=== PATIENT | female | born 1945 | race Caucasian/White ===

== ENCOUNTER 2018-10-14 12:19 | Emergency (ER) | payer MEDICARE, OTHER ==
[~2018-10-14] VITALS: Ht 162.6 cm; Wt 61.7 kg
[~2018-10-14 12:19] MED LIST: CLONIDINE HCL0.1 MG PO; COLACE100 MG PO; ELIQUIS5 MG PO; LASIX 20 MG TAB20 MG PO; NORCO 5-325 TA1 EACH PO; VERAPAMIL ER120 M1 PO
[2018-10-14] MEDS ORDERED: VITAMIN B125000 MCG PO (12:32)
[2018-10-14] MEDS ORDERED: ASPIR 8181 MG PO (12:32)
[2018-10-14] MEDS ORDERED: [UNRECOGNIZED DRUG - REMARK] (12:33)
[2018-10-14 12:52] LABS: ABSOLUTE BASOPHILS 0.1 thou/uL (0.0-0.2); ABSOLUTE LYMPHOCYTES 2.2 thou/uL (0.8-5.3); ABSOLUTE MONOCYTES 0.7 thou/uL (0.0-1.2); ABSOLUTE NEUTROPHILS 4.5 thou/uL (1.6-8.1); BASOPHILS 0.7 %; EOSINOPHILS 0.3 %; HEMATOCRIT 45.7 % (37.0-47.0); HEMOGLOBIN 15.5 gm/dL (12.0-15.0); LYMPHOCYTES 29.7 %; MCH 29.2 pg (26.0-34.0); MCV 85.8 fL (80.0-100.0); MONOCYTES 9.1 %; NUCLEATED RBCS 0 /100WBC; PLATELET COUNT* 260 thou/uL (150-400); POLYS 60.2 %; RBC 5.32 mil/uL (4.20-5.00); RDW-CV 14.9 % (10.5-14.5); WBC 7.5 thou/uL (4.0-11.0)
[2018-10-14] MEDS ORDERED: ZETIA10 MG PO (12:57)
[2018-10-14] MEDS ORDERED: ALDACTONE50 MG PO (12:58)
[2018-10-14 13:02] LABS: APTT 23.3 Seconds (25.0-31.3); PROTIME 10.2 Seconds (9.20-11.50)
[2018-10-14 13:04] LABS: ANION GAP 9 mmol/L (7-16); BUN 9 mg/dL (7-18); CALCIUM 9.9 mg/dL (8.5-10.1); CHLORIDE 97 mmol/L (98-107); CO2 27 mmol/L (21-32); GLUCOSE 124 mg/dL (70-99); POTASSIUM 3.9 mmol/L (3.5-5.1); SODIUM 133 mmol/L (136-145)
[2018-10-14 13:09] LABS: ALBUMIN 3.8 g/dL (3.4-5.0); ALKALINE PHOSPHATASE 109 U/L (46-116); LIPASE 184 U/L (73-393); NT-PRO BRAIN NAT PEPTIDE 54 pg/mL (<300); SGOT 17 U/L (15-37); SGPT 34 U/L (30-65); TOTAL PROTEIN 7.4 g/dL (6.4-8.2); TROPONIN-I LEVEL <0.06 ng/mL (<0.06)
[2018-10-14] MEDS ORDERED: VERAPAMIL ER180 MG PO (14:24)
[2018-10-14] MEDS ORDERED: VERAPAMIL E.R240 M1 PO (14:24)
[2018-10-14 14:37] VITALS: BP 171/74
--- NOTE | 2018-10-14 16:31 | EKG ---
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 : 1945 Requested By: Carlo Gamboa Order Number: [id number] MD: Silvino Gama Measurements Intervals [place] Rate: 68 P: 36 OR: 164 QRS: -50 QRSD: 94 T: 34 QT: 399 QTc: 425 Interpretive Statements Sinus rhythm Probable left atrial enlargement Left anterior fascicular block Abnormal R-wave progression, late transition Compared to ECG 04/12/2015 14:52:27 Left anterior fascicular block now present Indeterminate axis no longer present Electronically Signed On 10-14-2018 16:30:57 BRANCH COORDINATOR by Silvino Gama [email or web address] <ELECTRONICALLY SIGNED> By: Silvino Gama MD, FACC 10/14/18 1630 1234 1234 Silvino Gama MD, FAC /EPI
== END 2018-10-14 14:38 | disposition home or self-care (01) ==
LOC: M.ERS 12:19
PROVIDERS: Personal Emergency Response Attendant
DX: I10 Essential (primary) hypertension (principal); I25.2 Old myocardial infarction; Z90.49 Acquired absence of other specified parts of digestive tract; Z88.8 Allergy status to other drugs, medicaments and biological substances

== ENCOUNTER 2021-04-14 15:01 | Emergency (ER) | payer MEDICARE, OTHER ==
[~2021-04-14] VITALS: Ht 160 cm; Wt 57.6 kg
[~2021-04-14 15:01] MED LIST changes: +ALDACTONE50 MG PO; +ASPIR 8181 MG PO; +VERAPAMIL E.R240 M1 PO; +VERAPAMIL ER180 MG PO; +VITAMIN B125000 MCG PO; +ZETIA10 MG PO; +[UNRECOGNIZED DRUG - REMARK]
[2021-04-14] MEDS ORDERED: ASA81BEC PO (15:12)
[2021-04-14] MEDS ORDERED: NORVASC10 MG PO (15:14)
[2021-04-14 16:07] LABS: ABSOLUTE BASOPHILS 0.1 thou/uL (0.0-0.2); ABSOLUTE EOSINOPHILS 0.2 thou/uL (0.0-0.7); ABSOLUTE LYMPHOCYTES 2.5 thou/uL (0.8-5.3); ABSOLUTE MONOCYTES 0.7 thou/uL (0.0-1.2); ABSOLUTE NEUTROPHILS 6.8 thou/uL (1.6-8.1); BASOPHILS 0.5 %; EOSINOPHILS 2.1 %; HEMATOCRIT 40.1 % (37.0-47.0); HEMOGLOBIN 13.3 gm/dL (12.0-15.0); LYMPHOCYTES 24.1 %; MCH 26.7 pg (26.0-34.0); MCHC 33.1 g/dL (28.0-37.0); MCV 80.7 fL (80.0-100.0); MONOCYTES 7.2 %; MPV 7.7 fl. (7.2-11.1); NUCLEATED RBCS 0 /100WBC; PLATELET COUNT* 296 thou/uL (150-400); POLYS 66.1 %; RBC 4.97 mil/uL (4.20-5.00); RDW-CV 16.5 % (10.5-14.5); WBC 10.3 thou/uL (4.0-11.0)
[2021-04-14 16:15] LABS: CALCIUM 10.2 mg/dL (8.5-10.1); CREATININE 1.1 mg/dL (0.6-1.3); POTASSIUM 3.9 mmol/L (3.5-5.1)
[2021-04-14 16:19] LABS: APTT 21.4 Seconds (25.0-31.3); PROTIME 10.9 Seconds (9.20-11.50)
[2021-04-14 16:26] LABS: ALBUMIN 3.8 g/dL (3.4-5.0); TOTAL BILIRUBIN 0.9 mg/dL (<0.1-1.0)
[2021-04-14 17:36] LABS: URINE BILIRUBIN NEGATIVE (Negative); URINE BLOOD NEGATIVE (Negative); URINE CLARITY CLEAR; URINE COLOR YELLOW; URINE GLUCOSE-RANDOM NEGATIVE (Negative); URINE KETONES NEGATIVE (Negative); URINE LEUKOCYTES 2+ (Negative); URINE NITRITE NEGATIVE (Negative); URINE PROTEIN NEGATIVE (Negative); URINE SPECIFIC GRAVITY 1.015 (1.005-1.030); URINE UROBILINOGEN 0.2 E.U./dl (0.2-1.0)
[2021-04-14 17:40] LABS: CASTS None Seen /LPF (None Seen); SQUAMOUS 0-3 Few /LPF (0-3); URINE RBC 0-2 Rare /HPF (0-2); URINE WBC 0-5 Rare /HPF (0-5)
[2021-04-14 17:41] LABS: BACTERIA >30 Many /HPF (None Seen); CRYSTALS None Seen /LPF (None Seen)
[2021-04-14 19:38] VITALS: BP 131/90
[2021-04-14] MEDS ORDERED: NORVASC5 MG PO (22:39)
[2021-04-14] MEDS ORDERED: METFORMIN HCL500 MG PO (22:40)
[2021-04-14] MEDS ORDERED: PROTONIX40 M2 PO (22:40)
[2021-04-14] MEDS ORDERED: SPIRONOLACTONE25 MG PO (22:40)
[2021-04-14] MEDS ORDERED: CARVEDILOL12.5 MG PO (22:40)
--- NOTE | 2021-04-15 12:53 | EKG ---
[place] [address] ELECTROCARDIOGRAM REPORT Name: DARIENFRANCOIS L Room: [facility]#: [id number] Admission: 04/14/21 Attend Phys: Discharge: 04/14/21 Date of : 41 Date of Service: 04/14/21 1543 Report #: [id number] THIS REPORT FOR: //name// 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: [facility] : 1945 Requested By: Tao Garcia Order Number: [id number] MD: Marcelo Nino Measurements Intervals [place] Rate: 106 P: 57 FL: 185 QRS: 265 QRSD: 96 T: 40 QT: 341 QTc: 453 Interpretive Statements Sinus tachycardia Ventricular premature complex Abnormal R-wave progression, late transition left anterior fasicular block Compared to ECG 10/14/2018 12:34:45 Ventricular premature complex(es) now present Sinus rhythm no longer present Electronically Signed On 04-15-2021 12:53:38 CDT by Marcelo Nino [email or web address] <ELECTRONICALLY SIGNED> By: Marcelo Nino MD, FAC 04/15/21 1253 1543 1543 Marcelo Nino MD, FAC /EPI
--- NOTE | 2021-04-15 12:54 | EKG ---
[place] [address] ELECTROCARDIOGRAM REPORT Name: DARIENFRANCOIS Taisha 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 04/15/21 1254 1749 1749 Marcelo Nino MD, [facility] /EPI
[2021-04-18] MEDS ORDERED: ELIQUIS5 MG PER TUBE (12:03)
== END 2021-04-14 19:38 | disposition short-term general hospital (02) ==
LOC: M.ERS 15:01
PROVIDERS: Emergency Medicine
DX: I26.99 Other pulmonary embolism without acute cor pulmonale (principal); Z20.822 Contact with and (suspected) exposure to COVID-19; J96.90 Respiratory failure, unspecified, unspecified whether with hypoxia or hypercapnia; I25.2 Old myocardial infarction; E11.9 Type 2 diabetes mellitus without complications; I10 Essential (primary) hypertension; Z88.8 Allergy status to other drugs, medicaments and biological substances; Z79.82 Long term (current) use of aspirin; Z79.899 Other long term (current) drug therapy; Z90.49 Acquired absence of other specified parts of digestive tract

== ENCOUNTER → 2021-04-27 | Outpatient (CLI) | payer MEDICARE, OTHER ==
[~2021-04-27] MED LIST changes: +ASA81BEC PO; +CARVEDILOL12.5 MG PO; +ELIQUIS5 MG PER TUBE; +METFORMIN HCL500 MG PO; +NORVASC10 MG PO; +NORVASC5 MG PO; +PROTONIX40 M2 PO; +SPIRONOLACTONE25 MG PO
== END ==
LOC: M.ULTRA 09:00
PROVIDERS: ATTEND Internal Medicine Critical Care Medicine
DX: I82.413 Acute embolism and thrombosis of femoral vein, bilateral (principal); I82.451 Acute embolism and thrombosis of right peroneal vein; I82.441 Acute embolism and thrombosis of right tibial vein; Z86.718 Personal history of other venous thrombosis and embolism

== ENCOUNTER → 2021-06-12 | Outpatient (CLI) | payer MEDICARE, OTHER ==
[2021-06-12 09:28] LABS: CREATININE 0.9 mg/dL (0.6-1.3)
== END ==
LOC: M.LAB 04-26 09:24 → M.CT 10:00
PROVIDERS: ATTEND Internal Medicine Critical Care Medicine
DX: I26.09 Other pulmonary embolism with acute cor pulmonale (principal); R91.8 Other nonspecific abnormal finding of lung field; R91.1 Solitary pulmonary nodule; I82.403 Acute embolism and thrombosis of unspecified deep veins of lower extremity, bilateral; I25.10 Atherosclerotic heart disease of native coronary artery without angina pectoris; I65.23 Occlusion and stenosis of bilateral carotid arteries

== ENCOUNTER → 2021-11-30 | Outpatient (CLI) | payer MEDICARE, OTHER | LOC: M.ULTRA 09:05 | PROVIDERS: ATTEND Internal Medicine Critical Care Medicine | DX: I82.513 Chronic embolism and thrombosis of femoral vein, bilateral (principal); I26.99 Other pulmonary embolism without acute cor pulmonale; R91.8 Other nonspecific abnormal finding of lung field ==